=== PATIENT | male | born 1940 | race Caucasian/White ===

== ENCOUNTER 2018-06-08 15:08 | Inpatient (IN) | payer OTHER ==
[~2018-06-08] VITALS: Ht 182.9 cm; Wt 82.4 kg
[2018-06-08] MEDS ORDERED: SYMBICORT60 INHALAT IH (16:21)
[2018-06-08] MEDS ORDERED: PROVENTIL,2.5 MG/3 M IH (16:26)
[2018-06-08] MEDS ORDERED: PROAIR HFA8.5 GM IH (16:27)
[2018-06-08] MEDS ORDERED: SPIRIVA RESPIMAT4 GM IH (16:28)
[2018-06-08] MEDS ORDERED: ZESTORETIC 20-1 EAC2 PO (16:29)
[2018-06-08] MEDS ORDERED: LOPRESSOR25 MG PO (16:29)
[2018-06-08] MEDS ORDERED: PRILOSEC20 MG PO (16:30)
[2018-06-08] MEDS ORDERED: LO-DOSE ASPIRIN81 M2 PO (16:30)
[2018-06-08] MEDS ORDERED: REMERON45 MG PO (16:31)
[2018-06-08] MEDS ORDERED: CRESTOR40 MG PO (16:31)
[2018-06-08] MEDS ORDERED: OXAYDO5 MG PO (16:32)
[2018-06-08] MEDS ORDERED: MIRALAX17 GM PO (16:32)
[2018-06-08] MEDS ORDERED: ADVIL200 MG PO (16:32)
[2018-06-08 17:28] LABS: BASOPHIL (%) 0.2 % (0-1); EOSINOPHIL (%) 0 % (0-5); HEMOGLOBIN 11.9 G/DL (12.5-16.6); IMMATURE GRANULOCYTE (%) 0.4 % (0.0-0.7); LYMPHOCYTE (%) 20.1 % (15-42); LYMPHOCYTE COUNT 1.6 K/uL (1.0-2.8); MCH 27.4 PG (29.0-34.0); MCHC 32.2 G/DL (30.0-36.0); MCV 85.1 FL (86-99); MONOCYTE (%) 9.7 % (3-12); MONOCYTE COUNT 0.8 K/uL (0-0.8); NEUTROPHIL (%) 69.6 % (45-76); NEUTROPHIL COUNT 5.6 K/uL (1.8-6.4); PLATELET COUNT 163 K/uL (156-360); RBC DIS.WIDTH-CV 16.2 % (11.8-14.6); RBC DIS.WIDTH-SD 50.7 % (39-53); RED BLOOD COUNT 4.35 M/uL (4.00-5.50)
[2018-06-08 17:39] LABS: ALBUMIN 3.4 g/dL (3.2-4.8); CHLORIDE 98 mEq/L (99-109); POTASSIUM 3.4 mEq/L (3.7-5.4); SODIUM 145 mEq/L (136-147)
[2018-06-08 17:41] LABS: GLUCOSE 109 mg/dL (70-99); TOTAL PROTEIN 6.9 g/dL (6.4-8.3)
[2018-06-08 17:43] LABS: TOTAL BILIRUBIN 0.2 mg/dL (0.0-1.0)
[2018-06-08 17:45] LABS: ALKALINE PHOSPHATASE 108 IU/L (3-129); GFR ESTIMATE (CALCULATED) > 59 mL/min/ (58.99-99999)
[2018-06-08 17:46] LABS: UREA NITROGEN (BUN) 34 mg/dL (9-23)
[2018-06-08 17:47] LABS: AST (GOT) 12 IU/L (2-34)
[2018-06-08 17:48] LABS: ALT (GPT) < 3 IU/L (3-49)
[2018-06-08 20:16] LABS: APPEARANCE CLEAR ((CLEAR)); BILIRUBIN NEGATIVE; BLOOD NEGATIVE; COLOR STRAW ((YELLOW)); GLUCOSE (STRIP) NEGATIVE; KETONES NEGATIVE; LEUKOCYTES NEGATIVE; NITRITE NEGATIVE; PROTEIN (STRIP) NEGATIVE; UROBILINOGEN 0.2 MG/DL (0.2-1.0)
[2018-06-09 02:24] VITALS: BP 142/66
[2018-06-09 04:45] VITALS: BP 107/53
[2018-06-09 06:14] LABS: INTER. NORMALIZED RATIO 1.2
[2018-06-09 06:17] LABS: PTT 28.8 SEC (25-37)
[2018-06-09 07:09] VITALS: BP 131/60
[2018-06-09 11:27] VITALS: BP 115/57
[2018-06-09 15:12] VITALS: BP 132/62
[2018-06-09 23:33] VITALS: BP 106/57
[2018-06-10 03:36] VITALS: BP 108/55
[2018-06-10 06:11] LABS: BASOPHIL (%) 0.3 % (0-1); EOSINOPHIL (%) 0 % (0-5); HEMATOCRIT 33.9 % (38.0-50.0); HEMOGLOBIN 10.7 G/DL (12.5-16.6); IMMATURE GRANULOCYTE (%) 0.3 % (0.0-0.7); LYMPHOCYTE (%) 18.5 % (15-42); LYMPHOCYTE COUNT 1.3 K/uL (1.0-2.8); MCH 26.9 PG (29.0-34.0); MCHC 31.6 G/DL (30.0-36.0); MCV 85.2 FL (86-99); MONOCYTE (%) 10.4 % (3-12); MONOCYTE COUNT 0.7 K/uL (0-0.8); NEUTROPHIL (%) 70.5 % (45-76); NEUTROPHIL COUNT 4.8 K/uL (1.8-6.4); PLATELET COUNT 150 K/uL (156-360); RBC DIS.WIDTH-CV 16.4 % (11.8-14.6); RBC DIS.WIDTH-SD 51.6 % (39-53); RED BLOOD COUNT 3.98 M/uL (4.00-5.50); WHITE BLOOD COUNT 6.8 K/uL (4.1-10.2)
[2018-06-10 06:27] LABS: CHLORIDE 103 MEQ/L (99-109); CREATININE 0.7 MG/DL (0.6-1.3); GFR ESTIMATE (CALCULATED) > 59 mL/min/ (58.99-99999); GLUCOSE 103 mg/dL (70-99); POTASSIUM 3.1 MEQ/L (3.7-5.4); SODIUM 146 MEQ/L (136-147); UREA NITROGEN (BUN) 23 mg/dL (9-23)
[2018-06-10 07:15] VITALS: BP 118/62
[2018-06-10 15:11] VITALS: BP 116/63
[2018-06-10 23:43] VITALS: BP 108/50
[2018-06-11 06:14] LABS: BASOPHIL (%) 0.4 % (0-1); EOSINOPHIL (%) 0 % (0-5); HEMATOCRIT 33.5 % (38.0-50.0); HEMOGLOBIN 10.4 G/DL (12.5-16.6); IMMATURE GRANULOCYTE (%) 0.5 % (0.0-0.7); LYMPHOCYTE (%) 16.4 % (15-42); LYMPHOCYTE COUNT 1.2 K/uL (1.0-2.8); MCH 26.7 PG (29.0-34.0); MCV 85.9 FL (86-99); MONOCYTE (%) 10.5 % (3-12); MONOCYTE COUNT 0.8 K/uL (0-0.8); NEUTROPHIL (%) 72.2 % (45-76); NEUTROPHIL COUNT 5.3 K/uL (1.8-6.4); PLATELET COUNT 157 K/uL (156-360); RBC DIS.WIDTH-CV 16.4 % (11.8-14.6); WHITE BLOOD COUNT 7.4 K/uL (4.1-10.2)
[2018-06-11 06:37] LABS: CHLORIDE 103 MEQ/L (99-109); CREATININE 0.7 MG/DL (0.6-1.3); GFR ESTIMATE (CALCULATED) > 59 mL/min/ (58.99-99999); GLUCOSE 107 mg/dL (70-99); POTASSIUM 3.4 MEQ/L (3.7-5.4); SODIUM 146 MEQ/L (136-147); UREA NITROGEN (BUN) 26 mg/dL (9-23)
[2018-06-11 07:16] VITALS: BP 102/49
[2018-06-11 10:05] VITALS: BP 113/54
[2018-06-11 16:33] VITALS: BP 104/52
[2018-06-11 21:51] VITALS: BP 155/70
[2018-06-11 23:49] VITALS: BP 137/64
[2018-06-12 06:22] LABS: BASOPHIL (%) 0.2 % (0-1); EOSINOPHIL (%) 0 % (0-5); HEMATOCRIT 34.4 % (38.0-50.0); HEMOGLOBIN 10.8 G/DL (12.5-16.6); IMMATURE GRANULOCYTE (%) 0.5 % (0.0-0.7); LYMPHOCYTE (%) 8.3 % (15-42); MCH 27.1 PG (29.0-34.0); MCHC 31.4 G/DL (30.0-36.0); MCV 86.2 FL (86-99); MONOCYTE (%) 8.5 % (3-12); MONOCYTE COUNT 1.1 K/uL (0-0.8); NEUTROPHIL (%) 82.5 % (45-76); NEUTROPHIL COUNT 10.3 K/uL (1.8-6.4); PLATELET COUNT 170 K/uL (156-360); RBC DIS.WIDTH-CV 16.6 % (11.8-14.6); RBC DIS.WIDTH-SD 52.3 % (39-53); RED BLOOD COUNT 3.99 M/uL (4.00-5.50); WHITE BLOOD COUNT 12.5 K/uL (4.1-10.2)
[2018-06-12 06:44] LABS: CHLORIDE 100 MEQ/L (99-109); CREATININE 0.6 MG/DL (0.6-1.3); GFR ESTIMATE (CALCULATED) > 59 mL/min/ (58.99-99999); GLUCOSE 123 mg/dL (70-99); POTASSIUM 3.3 MEQ/L (3.7-5.4); SODIUM 142 MEQ/L (136-147); UREA NITROGEN (BUN) 22 mg/dL (9-23)
[2018-06-12 07:54] VITALS: BP 132/60
[2018-06-12 15:37] VITALS: BP 106/55
[2018-06-13 00:25] VITALS: BP 100/51
[2018-06-13 06:44] LABS: BASOPHIL (%) 0.1 % (0-1); EOSINOPHIL (%) 0 % (0-5); HEMATOCRIT 33.7 % (38.0-50.0); HEMOGLOBIN 10.6 G/DL (12.5-16.6); IMMATURE GRANULOCYTE (%) 0.5 % (0.0-0.7); LYMPHOCYTE (%) 7.6 % (15-42); MCH 26.8 PG (29.0-34.0); MCHC 31.5 G/DL (30.0-36.0); MCV 85.3 FL (86-99); MONOCYTE (%) 7.8 % (3-12); MONOCYTE COUNT 1.1 K/uL (0-0.8); NEUTROPHIL COUNT 11.4 K/uL (1.8-6.4); PLATELET COUNT 169 K/uL (156-360); RBC DIS.WIDTH-CV 16.6 % (11.8-14.6); RED BLOOD COUNT 3.95 M/uL (4.00-5.50); WHITE BLOOD COUNT 13.6 K/uL (4.1-10.2)
[2018-06-13 07:15] LABS: CHLORIDE 99 MEQ/L (99-109); GFR ESTIMATE (CALCULATED) > 59 mL/min/ (58.99-99999); GLUCOSE 117 mg/dL (70-99); POTASSIUM 3.3 MEQ/L (3.7-5.4); SODIUM 144 MEQ/L (136-147); UREA NITROGEN (BUN) 31 mg/dL (9-23)
[2018-06-13 08:07] VITALS: BP 122/55
[2018-06-13 15:44] VITALS: BP 86/52
[2018-06-13 20:00] VITALS: BP 118/58
[2018-06-13 23:41] VITALS: BP 101/57
[2018-06-14 06:55] LABS: BASOPHIL (%) 0.3 % (0-1); EOSINOPHIL (%) 0 % (0-5); HEMATOCRIT 32.6 % (38.0-50.0); HEMOGLOBIN 10.2 G/DL (12.5-16.6); IMMATURE GRANULOCYTE (%) 0.5 % (0.0-0.7); LYMPHOCYTE COUNT 0.9 K/uL (1.0-2.8); MCH 26.8 PG (29.0-34.0); MCHC 31.3 G/DL (30.0-36.0); MCV 85.6 FL (86-99); MONOCYTE (%) 9.8 % (3-12); MONOCYTE COUNT 1.1 K/uL (0-0.8); NEUTROPHIL (%) 81.4 % (45-76); NEUTROPHIL COUNT 8.9 K/uL (1.8-6.4); PLATELET COUNT 185 K/uL (156-360); RBC DIS.WIDTH-CV 16.9 % (11.8-14.6); RBC DIS.WIDTH-SD 53.1 % (39-53); RED BLOOD COUNT 3.81 M/uL (4.00-5.50); WHITE BLOOD COUNT 10.9 K/uL (4.1-10.2)
[2018-06-14 07:16] LABS: CHLORIDE 98 MEQ/L (99-109); CREATININE 1.3 MG/DL (0.6-1.3); GFR ESTIMATE (CALCULATED) 57 mL/min/ (58.99-99999); GLUCOSE 105 mg/dL (70-99); POTASSIUM 3.5 MEQ/L (3.7-5.4); SODIUM 142 MEQ/L (136-147); UREA NITROGEN (BUN) 44 mg/dL (9-23)
[2018-06-14 08:11] VITALS: BP 88/47
[2018-06-14 15:28] VITALS: BP 97/49
[2018-06-14 20:45] VITALS: BP 118/56
[2018-06-15 00:06] VITALS: BP 104/55
[2018-06-15 06:13] LABS: BASOPHIL (%) 0.1 % (0-1); EOSINOPHIL (%) 0 % (0-5); IMMATURE GRANULOCYTE (%) 0.6 % (0.0-0.7); LYMPHOCYTE (%) 6.2 % (15-42); LYMPHOCYTE COUNT 0.6 K/uL (1.0-2.8); MCH 26.6 PG (29.0-34.0); MCHC 31.3 G/DL (30.0-36.0); MCV 85.1 FL (86-99); MONOCYTE (%) 7.2 % (3-12); MONOCYTE COUNT 0.7 K/uL (0-0.8); NEUTROPHIL (%) 85.9 % (45-76); NEUTROPHIL COUNT 8.1 K/uL (1.8-6.4); PLATELET COUNT 188 K/uL (156-360); RBC DIS.WIDTH-CV 16.8 % (11.8-14.6); RBC DIS.WIDTH-SD 52.1 % (39-53); RED BLOOD COUNT 3.76 M/uL (4.00-5.50); WHITE BLOOD COUNT 9.5 K/uL (4.1-10.2)
[2018-06-15 06:43] LABS: CHLORIDE 99 MEQ/L (99-109); GFR ESTIMATE (CALCULATED) > 59 mL/min/ (58.99-99999); GLUCOSE 125 mg/dL (70-99); POTASSIUM 3.7 MEQ/L (3.7-5.4); SODIUM 142 MEQ/L (136-147); UREA NITROGEN (BUN) 44 mg/dL (9-23)
[2018-06-15 06:44] LABS: CREATININE 0.8 MG/DL (0.6-1.3)
[2018-06-15 07:23] VITALS: BP 100/51
[2018-06-15 16:01] VITALS: BP 130/54
[2018-06-15 23:01] VITALS: BP 91/52
[2018-06-16 07:34] VITALS: BP 118/57
[2018-06-16 17:08] VITALS: BP 108/54
[2018-06-16 20:30] VITALS: BP 120/60
[2018-06-17 08:02] VITALS: BP 122/54
[2018-06-17 16:12] VITALS: BP 103/53
[2018-06-17 23:13] VITALS: BP 106/55
[2018-06-18 07:32] VITALS: BP 126/60
[2018-06-18 15:47] VITALS: BP 133/59
[2018-06-18 23:10] VITALS: BP 104/55
[2018-06-19 07:12] VITALS: BP 130/59
[2018-06-19] MEDS ORDERED: VOLTAREN 1% GE100 GM TP (13:32)
[2018-06-19 15:54] VITALS: BP 133/59
[2018-06-20 00:17] VITALS: BP 130/70
[2018-06-20 07:56] VITALS: BP 128/58
[2018-06-20] MEDS ORDERED: LYRICA75 MG PO (14:07)
[2018-06-20 15:57] VITALS: BP 123/56
[2018-06-20 23:39] VITALS: BP 123/58
[2018-06-21 07:28] VITALS: BP 100/50
[2018-06-21 14:45] LABS: TROP-I INTERPRETATION NEGATIVE; TROPONIN-I 0.01 ng/mL (0.0-0.30)
[2018-06-21 15:52] VITALS: BP 123/83
[2018-06-21 19:59] LABS: COMMENTS - BLOOD GASES C+; DEVICE HFNC; O2 FLOW 8 L/MIN; PCO2 59 mm Hg (35-45); PO2 63 mm Hg (80-100); SITE RR; pH 7.41 (7.35-7.45)
[2018-06-21 20:00] LABS: BASE EXCESS 10.6 mEq/L (-3 to +3); BICARBONATE 37.4 mEq/L (22-26); CARBOXY HGB 1.5 % (0-5); METHEMOGLOBIN 0.8 % (0-1.5); O2 SATURATION (CALCULATED) 92.4 % (95-99)
[2018-06-21 21:51] LABS: TROP-I INTERPRETATION NEGATIVE; TROPONIN-I 0.03 ng/mL (0.0-0.30)
[2018-06-22 00:11] VITALS: BP 100/50
[2018-06-22 02:41] LABS: BASOPHIL (%) 0.3 % (0-1); EOSINOPHIL (%) 0 % (0-5); HEMATOCRIT 36.4 % (38.0-50.0); HEMOGLOBIN 11.8 G/DL (12.5-16.6); IMMATURE GRANULOCYTE (%) 1.1 % (0.0-0.7); LYMPHOCYTE COUNT 1.3 K/uL (1.0-2.8); MCHC 32.4 G/DL (30.0-36.0); MCV 86.3 FL (86-99); MONOCYTE (%) 9.2 % (3-12); MONOCYTE COUNT 1.2 K/uL (0-0.8); NEUTROPHIL (%) 79.4 % (45-76); NEUTROPHIL COUNT 10.6 K/uL (1.8-6.4); RBC DIS.WIDTH-CV 17.4 % (11.8-14.6); RBC DIS.WIDTH-SD 54.7 % (39-53); RED BLOOD COUNT 4.22 M/uL (4.00-5.50); WHITE BLOOD COUNT 13.3 K/uL (4.1-10.2)
[2018-06-22 03:10] LABS: CHLORIDE 93 mEq/L (99-109); POTASSIUM 3.3 mEq/L (3.7-5.4); SODIUM 141 mEq/L (136-147)
[2018-06-22 03:11] LABS: GLUCOSE 146 mg/dL (70-99)
[2018-06-22 03:15] LABS: GFR ESTIMATE (CALCULATED) 42 mL/min/ (58.99-99999)
[2018-06-22 03:16] LABS: UREA NITROGEN (BUN) 29 mg/dL (9-23)
[2018-06-22 03:18] LABS: CREATININE 1.7 mg/dL (0.6-1.3)
[2018-06-22 03:25] LABS: TROP-I INTERPRETATION NEGATIVE; TROPONIN-I 0.03 ng/mL (0.0-0.30)
[2018-06-22 03:55] LABS: PLATELET COUNT 274 K/uL (156-360)
[2018-06-22 08:22] VITALS: BP 121/55
[2018-06-22 08:51] LABS: TROP-I INTERPRETATION NEGATIVE; TROPONIN-I 0.02 ng/mL (0.0-0.30)
[2018-06-22 16:02] VITALS: BP 104/52
[2018-06-22 19:15] VITALS: BP 95/55
[2018-06-22 23:32] VITALS: BP 88/54
[2018-06-23] VITALS (9 sets, daily range): BP systolic 88–119; BP diastolic 46–60
[2018-06-23 08:33] LABS: HEMATOCRIT 35.3 % (38.0-50.0); MCH 27.8 PG (29.0-34.0); MCHC 31.2 G/DL (30.0-36.0); MCV 89.4 FL (86-99); PLATELET COUNT 316 K/uL (156-360); RBC DIS.WIDTH-CV 17.7 % (11.8-14.6); RED BLOOD COUNT 3.95 M/uL (4.00-5.50); WHITE BLOOD COUNT 20.6 K/uL (4.1-10.2)
[2018-06-23 08:55] LABS: CHLORIDE 98 MEQ/L (99-109); GLUCOSE 136 mg/dL (70-99); POTASSIUM 4.6 MEQ/L (3.7-5.4); SODIUM 143 MEQ/L (136-147)
[2018-06-23 08:56] LABS: CREATININE 2.5 MG/DL (0.6-1.3); GFR ESTIMATE (CALCULATED) 27 mL/min/ (58.99-99999); UREA NITROGEN (BUN) 46 mg/dL (9-23)
[2018-06-24 04:00] VITALS: BP 103/47
[2018-06-24 08:02] LABS: HEMATOCRIT 33.8 % (38.0-50.0); HEMOGLOBIN 10.2 G/DL (12.5-16.6); MCH 27.3 PG (29.0-34.0); MCHC 30.2 G/DL (30.0-36.0); MCV 90.4 FL (86-99); PLATELET COUNT 253 K/uL (156-360); RBC DIS.WIDTH-CV 17.8 % (11.8-14.6); RED BLOOD COUNT 3.74 M/uL (4.00-5.50); WHITE BLOOD COUNT 13.6 K/uL (4.1-10.2)
[2018-06-24 08:04] VITALS: BP 148/64
[2018-06-24 08:29] LABS: CHLORIDE 102 MEQ/L (99-109); CREATININE 1.2 MG/DL (0.6-1.3); GFR ESTIMATE (CALCULATED) > 59 mL/min/ (58.99-99999); GLUCOSE 116 mg/dL (70-99); POTASSIUM 4.3 MEQ/L (3.7-5.4); SODIUM 143 MEQ/L (136-147); UREA NITROGEN (BUN) 50 mg/dL (9-23)
[2018-06-24 16:07] VITALS: BP 107/57
[2018-06-24 19:41] VITALS: BP 125/59
[2018-06-24 22:58] VITALS: BP 116/57
[2018-06-25 04:09] VITALS: BP 100/47
[2018-06-25 06:16] LABS: BASOPHIL (%) 0.3 % (0-1); EOSINOPHIL (%) 0 % (0-5); HEMATOCRIT 31.5 % (38.0-50.0); HEMOGLOBIN 9.4 G/DL (12.5-16.6); IMMATURE GRANULOCYTE (%) 1.8 % (0.0-0.7); LYMPHOCYTE (%) 7.9 % (15-42); LYMPHOCYTE COUNT 0.6 K/uL (1.0-2.8); MCH 27.2 PG (29.0-34.0); MCHC 29.8 G/DL (30.0-36.0); MONOCYTE (%) 9.6 % (3-12); MONOCYTE COUNT 0.7 K/uL (0-0.8); NEUTROPHIL (%) 80.4 % (45-76); NEUTROPHIL COUNT 6.2 K/uL (1.8-6.4); PLATELET COUNT 196 K/uL (156-360); RBC DIS.WIDTH-CV 17.6 % (11.8-14.6); RBC DIS.WIDTH-SD 58.6 % (39-53); RED BLOOD COUNT 3.46 M/uL (4.00-5.50); WHITE BLOOD COUNT 7.7 K/uL (4.1-10.2)
[2018-06-25 06:32] LABS: CHLORIDE 103 MEQ/L (99-109); CREATININE 0.8 MG/DL (0.6-1.3); GFR ESTIMATE (CALCULATED) > 59 mL/min/ (58.99-99999); GLUCOSE 106 mg/dL (70-99); POTASSIUM 4.4 MEQ/L (3.7-5.4); SODIUM 145 MEQ/L (136-147); UREA NITROGEN (BUN) 42 mg/dL (9-23)
[2018-06-25 07:53] VITALS: BP 137/80
[2018-06-25 11:41] VITALS: BP 117/59
[2018-06-25 15:19] VITALS: BP 128/60
[2018-06-25 21:30] VITALS: BP 136/65
[2018-06-25 23:46] VITALS: BP 145/74
[2018-06-26 00:25] LABS: APPEARANCE TURBID ((CLEAR)); BILIRUBIN NEGATIVE; BLOOD NEGATIVE; COLOR YELLOW ((YELLOW)); GLUCOSE (STRIP) NEGATIVE; KETONES NEGATIVE; LEUKOCYTES NEGATIVE; NITRITE NEGATIVE; PROTEIN (STRIP) NEGATIVE; SPECIFIC GRAVITY 1.017 (1.000-1.030); UROBILINOGEN 0.2 MG/DL (0.2-1.0)
[2018-06-26 00:32] LABS: BACTERIA NONE SEEN /HPF; EPITHELIAL CELLS RARE /HPF; MUCUS TRACE /LPF; RED BLOOD CELLS NONE SEEN /HPF (0-5); URIC ACID CRYSTALS 4+ /HPF; WHITE BLOOD CELLS NONE SEEN /HPF (0-5)
[2018-06-26 04:59] VITALS: BP 130/60
[2018-06-26 07:16] VITALS: BP 130/60
[2018-06-26 11:08] VITALS: BP 130/60
[2018-06-26 15:26] VITALS: BP 142/63
[2018-06-26 19:12] VITALS: BP 150/67
[2018-06-26 23:08] VITALS: BP 150/67
[2018-06-27 05:08] VITALS: BP 150/67
[2018-06-27 05:40] LABS: BASOPHIL (%) 0.3 % (0-1); EOSINOPHIL (%) 0 % (0-5); HEMOGLOBIN 9.5 G/DL (12.5-16.6); IMMATURE GRANULOCYTE (%) 3.5 % (0.0-0.7); LYMPHOCYTE (%) 10.4 % (15-42); LYMPHOCYTE COUNT 0.7 K/uL (1.0-2.8); MCH 27.2 PG (29.0-34.0); MCHC 30.6 G/DL (30.0-36.0); MCV 88.8 FL (86-99); MONOCYTE (%) 11.3 % (3-12); MONOCYTE COUNT 0.7 K/uL (0-0.8); NEUTROPHIL (%) 74.5 % (45-76); NEUTROPHIL COUNT 4.9 K/uL (1.8-6.4); PLATELET COUNT 155 K/uL (156-360); RBC DIS.WIDTH-CV 17.1 % (11.8-14.6); RBC DIS.WIDTH-SD 55.6 % (39-53); RED BLOOD COUNT 3.49 M/uL (4.00-5.50); WHITE BLOOD COUNT 6.5 K/uL (4.1-10.2)
[2018-06-27 05:53] LABS: CHLORIDE 102 MEQ/L (99-109); CREATININE 0.5 MG/DL (0.6-1.3); GFR ESTIMATE (CALCULATED) > 59 mL/min/ (58.99-99999); GLUCOSE 89 mg/dL (70-99); POTASSIUM 4.1 MEQ/L (3.7-5.4); SODIUM 143 MEQ/L (136-147); UREA NITROGEN (BUN) 26 mg/dL (9-23)
[2018-06-27 07:31] VITALS: BP 118/58
[2018-06-27] MEDS ORDERED: AUGMENTIN875 MG PO (09:58)
[2018-06-27] MEDS ORDERED: CYCLOBENZAPRINE10 MG PO (09:58)
[2018-06-27] MEDS ORDERED: PERCOCET 5/31 TABLET PO (09:58)
[2018-06-27] MEDS ORDERED: PREDNISONE20 MG PO (09:58)
[2018-06-27] MEDS ORDERED: Salonpas 4% Patch TD (09:58)
[2018-06-27 11:16] VITALS: BP 128/63
== END 2018-06-27 12:48 | disposition home or self-care (01) | DRG 543 ==
LOC: EME 15:08 → 3EAST 23:55 → EDOF 23:55 → ENRESERV 23:59 → 3EAST 06-09 01:57
PROVIDERS: Emergency Medicine; Hospitalist; Internal Medicine; Student in an Organized Health Care Education/Training Program
DX: M48.56XA Collapsed vertebra, not elsewhere classified, lumbar region, initial encounter for fracture (principal); M62.838 Other muscle spasm; M54.5 Low back pain; K59.00 Constipation, unspecified; J43.9 Emphysema, unspecified; J44.1 Chronic obstructive pulmonary disease with (acute) exacerbation; I10 Essential (primary) hypertension; F32.9 Major depressive disorder, single episode, unspecified; F41.9 Anxiety disorder, unspecified; E66.9 Obesity, unspecified; I25.10 Atherosclerotic heart disease of native coronary artery without angina pectoris; G89.29 Other chronic pain; E78.5 Hyperlipidemia, unspecified; Z89.612 Acquired absence of left leg above knee; Z86.79 Personal history of other diseases of the circulatory system; Z99.3 Dependence on wheelchair; Z87.891 Personal history of nicotine dependence; Z79.82 Long term (current) use of aspirin; Z89.512 Acquired absence of left leg below knee; Z68.24 Body mass index [BMI] 24.0-24.9, adult; Z79.899 Other long term (current) drug therapy; E55.9 Vitamin D deficiency, unspecified; Z79.51 Long term (current) use of inhaled steroids; Z74.01 Bed confinement status; Z99.81 Dependence on supplemental oxygen; N39.498 Other specified urinary incontinence; N17.9 Acute kidney failure, unspecified; K56.41 Fecal impaction; J98.11 Atelectasis
CPT/HCPCS: 36600; 71045; 72132; 74177; 80048; 80053; 81003; 82306; 82310; 82330; 82948; 84132 91; 84145 90; 84484; 85025; 85027; 85610; 85730; 93005; 94640; 94669; 94799; 99281; 99285; J0692; J0696; J1030; J1170; J1644; J1885; J1956; J2270; J2920; J2930; J3010; J3475; J7030; J7040; J7512; S0020

== ENCOUNTER 2018-06-29 13:43 | Inpatient (IN) | payer OTHER ==
[~2018-06-29] VITALS: Ht 185.4 cm; Wt 78.4 kg
[~2018-06-29 13:43] MED LIST: ADVIL200 MG PO; AUGMENTIN875 MG PO; CRESTOR40 MG PO; CYCLOBENZAPRINE10 MG PO; LO-DOSE ASPIRIN81 M2 PO; LOPRESSOR25 MG PO; LYRICA75 MG PO; MIRALAX17 GM PO; OXAYDO5 MG PO; PERCOCET 5/31 TABLET PO; PREDNISONE20 MG PO; PRILOSEC20 MG PO; PROAIR HFA8.5 GM IH; PROVENTIL,2.5 MG/3 M IH; REMERON45 MG PO; SPIRIVA RESPIMAT4 GM IH; SYMBICORT60 INHALAT IH; Salonpas 4% Patch TD; VOLTAREN 1% GE100 GM TP; ZESTORETIC 20-1 EAC2 PO
[2018-06-29 14:47] LABS: BASOPHIL (%) 0.2 % (0-1); EOSINOPHIL (%) 0 % (0-5); HEMATOCRIT 38.7 % (38.0-50.0); IMMATURE GRANULOCYTE (%) 1.4 % (0.0-0.7); LYMPHOCYTE (%) 2.6 % (15-42); LYMPHOCYTE COUNT 0.3 K/uL (1.0-2.8); MCH 27.9 PG (29.0-34.0); MCV 87.2 FL (86-99); MONOCYTE COUNT 0.6 K/uL (0-0.8); NEUTROPHIL (%) 90.8 % (45-76); NEUTROPHIL COUNT 11.2 K/uL (1.8-6.4); PLATELET COUNT 184 K/uL (156-360); RBC DIS.WIDTH-CV 17.2 % (11.8-14.6); RBC DIS.WIDTH-SD 55.2 % (39-53); WHITE BLOOD COUNT 12.3 K/uL (4.1-10.2)
[2018-06-29 14:49] LABS: HEMOGLOBIN 12.4 G/DL (12.5-16.6); RED BLOOD COUNT 4.44 M/uL (4.00-5.50)
[2018-06-29 14:57] LABS: CHLORIDE 99 mEq/L (99-109); POTASSIUM 4.2 mEq/L (3.7-5.4); SODIUM 144 mEq/L (136-147)
[2018-06-29 15:03] LABS: CREATININE 0.6 mg/dL (0.6-1.3); GFR ESTIMATE (CALCULATED) > 59 mL/min/ (58.99-99999); UREA NITROGEN (BUN) 24 mg/dL (9-23)
[2018-06-29 15:05] LABS: GLUCOSE 137 mg/dL (70-99)
[2018-06-29 15:07] LABS: TROP-I INTERPRETATION NEGATIVE; TROPONIN-I 0.13 ng/mL (0.0-0.30)
[2018-06-29 17:07] LABS: INTER. NORMALIZED RATIO 1.2
[2018-06-29 17:09] LABS: PTT 25.2 SEC (25-37)
[2018-06-29] MEDS ORDERED: AUGMENTIN875 MG PO (18:42)
[2018-06-29] MEDS ORDERED: DELTASONE20 M1 PO (18:45)
[2018-06-29] MEDS ORDERED: LIDOCAINE PAIN1 EACH TP (18:46)
[2018-06-29 22:53] LABS: COMMENTS - BLOOD GASES C+; DEVICE NC; O2 FLOW 5 L/MIN; PCO2 78 mm Hg (35-45); PO2 66 mm Hg (80-100); SITE RR; pH 7.33 (7.35-7.45)
[2018-06-29 22:54] LABS: BASE EXCESS 11.8 mEq/L (-3 to +3); BICARBONATE 41.1 mEq/L (22-26); CARBOXY HGB 1.5 % (0-5); METHEMOGLOBIN 1.1 % (0-1.5); O2 SATURATION (CALCULATED) 93.5 % (95-99)
[2018-06-29 22:59] LABS: TROP-I INTERPRETATION NEGATIVE
[2018-06-29 23:08] VITALS: BP 109/73
[2018-06-29 23:15] VITALS: BP 109/73
[2018-06-29 23:30] VITALS: BP 91/59
[2018-06-29 23:45] VITALS: BP 91/61
[2018-06-30] VITALS (22 sets, daily range): BP systolic 81–126; BP diastolic 47–83
[2018-06-30 00:55] LABS: COMMENTS - BLOOD GASES C+; SITE RR
[2018-06-30 00:56] LABS: DEVICE MASK VENT; FI02 50 %; MODE SPONT; TOTAL RESP RATE 21 resp/min
[2018-06-30 00:57] LABS: BASE EXCESS 10.2 mEq/L (-3 to +3); BICARBONATE 35.6 mEq/L (22-26); CARBOXY HGB 1.3 % (0-5); METHEMOGLOBIN 0.6 % (0-1.5); PCO2 50 mm Hg (35-45); PEEP 5 CM/H20; PO2 58 mm Hg (80-100); PRES. SUPPORT 12 CM/H2O; pH 7.46 (7.35-7.45)
[2018-06-30 05:22] LABS: HEMATOCRIT 36.2 % (38.0-50.0); HEMOGLOBIN 11.4 G/DL (12.5-16.6); MCH 27.6 PG (29.0-34.0); MCHC 31.5 G/DL (30.0-36.0); MCV 87.7 FL (86-99); PLATELET COUNT 181 K/uL (156-360); RBC DIS.WIDTH-CV 17.6 % (11.8-14.6); RED BLOOD COUNT 4.13 M/uL (4.00-5.50); WHITE BLOOD COUNT 14.3 K/uL (4.1-10.2)
[2018-06-30 05:56] LABS: CHLORIDE 98 MEQ/L (99-109); CREATININE 0.5 MG/DL (0.6-1.3); GFR ESTIMATE (CALCULATED) > 59 mL/min/ (58.99-99999); GLUCOSE 108 mg/dL (70-99); POTASSIUM 3.8 MEQ/L (3.7-5.4); SODIUM 144 MEQ/L (136-147); UREA NITROGEN (BUN) 23 mg/dL (9-23)
[2018-07-01] VITALS (16 sets, daily range): BP systolic 79–146; BP diastolic 46–76
[2018-07-02] VITALS (18 sets, daily range): BP systolic 83–116; BP diastolic 41–62
[2018-07-02 05:14] LABS: BASOPHIL (%) 0.1 % (0-1); EOSINOPHIL (%) 0 % (0-5); HEMATOCRIT 31.2 % (38.0-50.0); HEMOGLOBIN 9.8 G/DL (12.5-16.6); IMMATURE GRANULOCYTE (%) 0.8 % (0.0-0.7); LYMPHOCYTE (%) 2.9 % (15-42); LYMPHOCYTE COUNT 0.5 K/uL (1.0-2.8); MCH 28.1 PG (29.0-34.0); MCHC 31.4 G/DL (30.0-36.0); MCV 89.4 FL (86-99); MONOCYTE COUNT 0.6 K/uL (0-0.8); NEUTROPHIL (%) 92.2 % (45-76); NEUTROPHIL COUNT 14.5 K/uL (1.8-6.4); PLATELET COUNT 144 K/uL (156-360); RBC DIS.WIDTH-CV 18.1 % (11.8-14.6); RED BLOOD COUNT 3.49 M/uL (4.00-5.50); WHITE BLOOD COUNT 15.7 K/uL (4.1-10.2)
[2018-07-02 05:40] LABS: CHLORIDE 101 MEQ/L (99-109); CREATININE 0.5 MG/DL (0.6-1.3); GFR ESTIMATE (CALCULATED) > 59 mL/min/ (58.99-99999); GLUCOSE 144 mg/dL (70-99); MAGNESIUM 1.9 mg/dl (1.3-2.7); PHOSPHORUS 2.3 mg/dL (2.5-4.9); POTASSIUM 3.6 MEQ/L (3.7-5.4); SODIUM 146 MEQ/L (136-147); UREA NITROGEN (BUN) 33 mg/dL (9-23)
[2018-07-03] VITALS (11 sets, daily range): BP systolic 80–129; BP diastolic 39–67
[2018-07-03 14:23] LABS: MAGNESIUM 1.8 mg/dL (1.3-2.7)
[2018-07-04] VITALS (11 sets, daily range): BP systolic 79–134; BP diastolic 45–69
[2018-07-05 03:10] VITALS: BP 123/50
[2018-07-05 08:00] VITALS: BP 115/54
[2018-07-05 08:36] LABS: BASOPHIL (%) 0.2 % (0-1); EOSINOPHIL (%) 0 % (0-5); HEMATOCRIT 35.8 % (38.0-50.0); HEMOGLOBIN 10.9 G/DL (12.5-16.6); IMMATURE GRANULOCYTE (%) 1.2 % (0.0-0.7); LYMPHOCYTE COUNT 0.4 K/uL (1.0-2.8); MCH 27.5 PG (29.0-34.0); MCHC 30.4 G/DL (30.0-36.0); MCV 90.4 FL (86-99); MONOCYTE (%) 4.5 % (3-12); MONOCYTE COUNT 0.5 K/uL (0-0.8); NEUTROPHIL (%) 90.1 % (45-76); NEUTROPHIL COUNT 9.3 K/uL (1.8-6.4); PLATELET COUNT 137 K/uL (156-360); RBC DIS.WIDTH-CV 17.5 % (11.8-14.6); RBC DIS.WIDTH-SD 58.2 % (39-53); RED BLOOD COUNT 3.96 M/uL (4.00-5.50); WHITE BLOOD COUNT 10.3 K/uL (4.1-10.2)
[2018-07-05 08:56] LABS: CHLORIDE 102 MEQ/L (99-109); CREATININE 0.4 MG/DL (0.6-1.3); GFR ESTIMATE (CALCULATED) > 59 mL/min/ (58.99-99999); GLUCOSE 126 mg/dL (70-99); SODIUM 145 MEQ/L (136-147); UREA NITROGEN (BUN) 29 mg/dL (9-23)
[2018-07-05 09:08] LABS: POTASSIUM 4.8 MEQ/L (3.7-5.4)
[2018-07-05 11:17] VITALS: BP 117/57
[2018-07-05 15:12] VITALS: BP 138/62
[2018-07-05 21:00] VITALS: BP 135/62
[2018-07-06] VITALS: BP 131/59
[2018-07-06 04:00] VITALS: BP 141/55
[2018-07-06 08:06] VITALS: BP 137/82
[2018-07-06 15:36] VITALS: BP 115/56
[2018-07-06 18:47] VITALS: BP 143/65
[2018-07-06 21:58] VITALS: BP 122/60
[2018-07-07 00:20] VITALS: BP 124/59
[2018-07-07 03:44] VITALS: BP 135/63
[2018-07-07 08:14] VITALS: BP 148/67
[2018-07-07 11:52] VITALS: BP 148/61
[2018-07-07 13:20] LABS: CARBOXY HGB 1.2 % (0-5); COMMENTS - BLOOD GASES C+; DEVICE NC; METHEMOGLOBIN 1.1 % (0-1.5); O2 FLOW 4 L/MIN; O2 SATURATION (CALCULATED) 95.8 % (95-99); PCO2 55 mm Hg (35-45); PO2 66 mm Hg (80-100); SITE RR; TOTAL RESP RATE 22 resp/min; pH 7.46 (7.35-7.45)
[2018-07-07 13:21] LABS: BASE EXCESS 13.2 mEq/L (-3 to +3); BICARBONATE 39.1 mEq/L (22-26)
[2018-07-07 16:03] VITALS: BP 138/62
[2018-07-07 19:38] VITALS: BP 128/61
[2018-07-08 00:25] VITALS: BP 123/57
[2018-07-08 03:28] VITALS: BP 129/60
[2018-07-08 08:17] VITALS: BP 124/57
[2018-07-08 10:21] LABS: BASOPHIL (%) 0.2 % (0-1); EOSINOPHIL (%) 0 % (0-5); HEMATOCRIT 34.3 % (38.0-50.0); HEMOGLOBIN 10.9 G/DL (12.5-16.6); IMMATURE GRANULOCYTE (%) 1.4 % (0.0-0.7); LYMPHOCYTE COUNT 0.7 K/uL (1.0-2.8); MCHC 31.8 G/DL (30.0-36.0); MCV 88.2 FL (86-99); MONOCYTE (%) 6.2 % (3-12); MONOCYTE COUNT 0.8 K/uL (0-0.8); NEUTROPHIL (%) 86.2 % (45-76); NEUTROPHIL COUNT 10.5 K/uL (1.8-6.4); PLATELET COUNT 158 K/uL (156-360); RBC DIS.WIDTH-CV 18.2 % (11.8-14.6); RBC DIS.WIDTH-SD 57.5 % (39-53); RED BLOOD COUNT 3.89 M/uL (4.00-5.50); WHITE BLOOD COUNT 12.2 K/uL (4.1-10.2)
[2018-07-08 12:18] VITALS: BP 116/57
[2018-07-08 16:49] LABS: TYPE OF FLUID PLEURAL
[2018-07-08 17:01] VITALS: BP 107/54
[2018-07-08 17:31] LABS: BODY FLUID GLUCOSE 151 MG/DL; BODY FLUID LDH 68 IU/L; BODY FLUID PROTEIN < 3.0 G/DL
[2018-07-08 18:34] LABS: APPEARANCE CLEAR; BODY FLUID EOSINOPHILS 0 % (0-25); BODY FLUID RBC'S 3000 /MM^3 (0-100); BODY FLUID WBC'S 1908 /MM^3 (0-500); MONONUCLEAR WBC'S 69 %; POLYNUCLEAR WBC'S 31 % (0-25)
[2018-07-08 20:47] VITALS: BP 125/58
[2018-07-09 00:43] VITALS: BP 128/62
[2018-07-09 05:11] VITALS: BP 127/66
[2018-07-09 08:16] VITALS: BP 108/53
[2018-07-09 12:10] VITALS: BP 97/54
[2018-07-09 15:58] VITALS: BP 116/57
[2018-07-09 20:00] VITALS: BP 120/51
[2018-07-10 00:04] VITALS: BP 112/60
[2018-07-10 04:06] VITALS: BP 115/68
[2018-07-10 07:12] LABS: HEMATOCRIT 33.2 % (38.0-50.0); HEMOGLOBIN 10.4 G/DL (12.5-16.6); MCH 27.7 PG (29.0-34.0); MCHC 31.3 G/DL (30.0-36.0); MCV 88.3 FL (86-99); PLATELET COUNT 135 K/uL (156-360); RBC DIS.WIDTH-CV 18.2 % (11.8-14.6); RBC DIS.WIDTH-SD 58.4 % (39-53); RED BLOOD COUNT 3.76 M/uL (4.00-5.50); WHITE BLOOD COUNT 8.8 K/uL (4.1-10.2)
[2018-07-10 07:39] LABS: CHLORIDE 99 MEQ/L (99-109); CREATININE 0.4 MG/DL (0.6-1.3); GFR ESTIMATE (CALCULATED) > 59 mL/min/ (58.99-99999); GLUCOSE 94 mg/dL (70-99); SODIUM 141 MEQ/L (136-147); UREA NITROGEN (BUN) 21 mg/dL (9-23)
[2018-07-10 07:45] LABS: POTASSIUM 3.8 MEQ/L (3.7-5.4)
[2018-07-10 07:50] VITALS: BP 131/73
[2018-07-10 15:28] VITALS: BP 110/57
[2018-07-10 23:18] VITALS: BP 116/58
[2018-07-11 07:43] VITALS: BP 114/55
[2018-07-11 15:21] VITALS: BP 147/67
[2018-07-12 00:06] VITALS: BP 105/52
[2018-07-12 07:10] VITALS: BP 126/56
[2018-07-12] MEDS ORDERED: ACETYLCYST100 MG/1 M IH (12:22)
[2018-07-12] MEDS ORDERED: K-DUR10 MEQ PO (12:23)
[2018-07-12] MEDS ORDERED: LASIX20 MG PO (12:23)
[2018-07-12] MEDS ORDERED: MUCINEX600 MG PO (12:28)
[2018-07-12] MEDS ORDERED: PREDNISONE5 MG PO (12:28)
[2018-07-12] MEDS ORDERED: PERCOCET 5/31 TABLET PO (12:29)
[2018-07-12] MEDS ORDERED: XOPENEX1.25 MG/0. AEROSOL (12:29)
== END 2018-07-12 14:18 | DRG 193 ==
LOC: EME → EDBD 13:43 → 4WEST 19:57 → EDOF 19:57 → ENRESERV 19:59 → 5SOUTH 21:35 → ENRESERV 23:00 → 4WEST 23:07 → CANRESERV 07-02 18:19 → ENRESERV 07-02 18:19 → CANRESERV 07-03 20:38 → ENRESERVTM 07-03 20:38 → ENRESERV 07-03 20:38 → ENRESERVDT 07-03 20:43 → ENRESERV 07-03 20:43 → CANRESERV 07-03 20:43 → ENRESERVTM 07-03 20:43 → CANRESERV 07-03 20:44 → ENRESERV 07-03 20:44 → 4WEST 07-04 09:53 → ENRESERV 07-04 10:39 → 4EAST 07-04 16:25 → ENRESERV 07-06 16:20 → 2EAST 07-06 18:38
PROVIDERS: Emergency Medicine; Hospitalist; Internal Medicine; Internal Medicine Pulmonary Disease; Specialist
PROC: 5A09357 Assistance with Respiratory Ventilation, Less than 24 Consecutive Hours, Continuous Positive Airway Pressure (ICD-10-PCS; principal; 2018-06-29)
PROC: 0W993ZZ Drainage of Right Pleural Cavity, Percutaneous Approach (ICD-10-PCS; 2018-07-08)
DX: J18.9 Pneumonia, unspecified organism (principal); Y95 Nosocomial condition; J90 Pleural effusion, not elsewhere classified; J44.0 Chronic obstructive pulmonary disease with (acute) lower respiratory infection; J44.1 Chronic obstructive pulmonary disease with (acute) exacerbation; J96.21 Acute and chronic respiratory failure with hypoxia; J96.22 Acute and chronic respiratory failure with hypercapnia; I49.3 Ventricular premature depolarization; I47.2 Ventricular tachycardia; I10 Essential (primary) hypertension; F32.9 Major depressive disorder, single episode, unspecified; E78.5 Hyperlipidemia, unspecified; E55.9 Vitamin D deficiency, unspecified; R74.8 Abnormal levels of other serum enzymes; I25.10 Atherosclerotic heart disease of native coronary artery without angina pectoris; G89.29 Other chronic pain; M54.9 Dorsalgia, unspecified; M40.209 Unspecified kyphosis, site unspecified; Z79.02 Long term (current) use of antithrombotics/antiplatelets; Z99.81 Dependence on supplemental oxygen; Z79.82 Long term (current) use of aspirin; Z87.891 Personal history of nicotine dependence; Z89.512 Acquired absence of left leg below knee
CPT/HCPCS: 36600; 71045; 71275; 76942; 80048; 82272; 82945; 82948; 83605; 83615 91; 83735; 83880; 84100; 84145 90; 84157; 84484; 85025; 85027; 85610; 85730; 87040; 87070; 87075; 87116; 87205; 87206; 87641; 88108; 88305; 89051; 93005; 93306; 94002; 94003; 94640; 94660; 94760; 94799; 97530 GO; 99281; 99285; A6214; C9113; J0692; J1644; J1940; J2920; J2930; J3370; J3475; J7050; J7512